=== PATIENT | female | born 1960 | race African-American/Black ===

== ENCOUNTER → 2019-04-12 | Outpatient (CLI) | payer OTHER ==
[~2019-04-12] MED LIST: LIDOCAINE 1%/EPINEPHRINE INJ 20 ML VIAL ONE
--- NOTE | 2019-04-12 13:02 | RADIOLOGY REPORT (SQ) ---
EXAM DESCRIPTION: STEREO BREAST BX COMPLETED DATE/TIME: 04/12/2019 12:48 pm REASON FOR STUDY: MAMMOGRAPHIC MICROCALCIFICATION FOUND ON DX IMAGING OF BRST R92.[address] CROCALCIFICATION FOUND ON DX IMAGING OF COMPARISON: Outside mammogram dated 09/25/2018. LIMITATIONS: None. PROCEDURE: Stereotactic images were acquired to target a cluster of calcifications in the upper-oute r right breast. Due to the deep location, the calcifications could not be adequately positioned for targeting and biopsy. The biopsy was not performed. TECHNIQUE: Stereotactic images of the right breast. FINDINGS: Unable to localize the cluster of calcifications due to the deep location. IMPRESSION: Stereotactic images were acquired to target a cluster of calcifications in the upper-out er right breast. Due to the deep location, the calcifications could not be adequately positioned for targeting and biopsy. The biopsy was not performed. TECHNICAL DOCUMENTATION: JOB ID: [id number] [employer]- All Rights Reserved Reading location - IP/workstation name: [email or web address]
--- NOTE | 2019-04-12 17:49 | Discharge Summary ---
Discharge Summary (SDC) - Discharge Final Diagnosis: Microcalcifications right breast Date of Surgery: 04/12/19 Discharge Date: 04/12/19 Treatment or Instructions: Procedure aborted due to the inability to adequately localize microcalcificatio ns in the upper outer aspect of the right breast. Recommendations: Obtain interval bilateral mammogram. Will communicate with patient results and plan. Referrals: TOBIAS MERAZ MD [Primary Care Provider] - Discharge Diet: As Tolerated Discharge Activity: Activity As Tolerated
== END ==
LOC: RAD 11:13 → EDSTATUS 11:30
PROVIDERS: ATTEND Surgery
DX: R92.0 Mammographic microcalcification found on diagnostic imaging of breast (principal)
CPT/HCPCS: 77066; J3490

== ENCOUNTER → 2019-09-24 | Outpatient (CLI) | payer OTHER ==
--- NOTE | 2019-09-24 13:59 | WOMENS IMAGING REPORT ---
EXAM DESCRIPTION: BILAT DIAGNOSTIC MAMMO W/CAD COMPLETED DATE/TIME: 09/24/2019 11:47 am REASON FOR STUDY: R92.0 MAMMOGRAPHIC MICROCALCIFICATION FOUND ON DIAGNOSTIC IMAGING OF BREAST R92.0 MAMMOGRAPHIC MICROCALCIFICATION FOUND ON DX IMAGING OF COMPARISON: 04/12/2019. Outside mammograms from 09/25/2018 from [facility] EXAM PARAMETERS: Standard craniocaudal and mediolateral oblique views of each breast recorded using digital acquisition. Magnification right views. Non magnified true lateral and XCC views. Read with the assistance of CAD: .FORMERLY [facility] - [employer] Version 9.2 LIMITATIONS: None. FINDINGS: RIGHT BREAST MASSES: No suspicious masses. CALCIFICATIONS: No suspicious calcifications on today's study. No progressing calcifications noted. Previously noted cluster not clearly identified today. ARCHITECTURAL DISTORTION: None. ASYMMETRY: None noted. OTHER: No other significant findings. LEFT BREAST MASSES: Stable partially circumscribed mass in the lateral left breast mid depth. CALCIFICATIONS: No new or suspicious calcifications. ARCHITECTURAL DISTORTION: None. ASYMMETRY: None noted. OTHER: No other significant finding. IMPRESSION: No worrisome findings. Patient should return to yearly bilateral screening mammography. BREAST DENSITY: c. The breasts are heterogeneously dense, which may obscure small masses. BIRAD: ASSESSMENT: 2 Benign findings. RECOMMENDATION: RECOMMENDED FOLLOW UP: Birads 1 or 2: The patient should resume routine screening . SPECIFIC INTERVENTION/IMAGING/CONSULTATION RECOMMENDED:No additional intervention/ imaging/consultati on needed at this time. COMMUNICATION:No significant abnormalities to discuss with the patient today. COMMENT: The patient has been notified of the results by letter per MQSA requirements. Additional no tification policies are in place for contacting patient with suspicious or incomplete findings. Quality ID #[id number]: The [employer] recommends an annual screening mammogram for women aged 40 years or over. This facility utilizes a reminder system to ensure that all patients receive reminder letters, and/or direct phone calls for appointments. This includes reminders for routine scr eening mammograms, diagnostic mammograms, or other Breast Imaging Interventions when appropriate. Th is patient will be placed in the appropriate reminder system. TECHNICAL DOCUMENTATION: FINDING NUMBER: (1) ASSESSMENT: (1) JOB ID: [id number] [employer] [place]- All Rights Reserved Reading location - IP/workstation name: [email or web address]
== END ==
LOC: WI 11:10
PROVIDERS: ATTEND Surgery
DX: R92.0 Mammographic microcalcification found on diagnostic imaging of breast (principal)
CPT/HCPCS: 77066